=== PATIENT | female | born 2000 | race Caucasian/White ===

== ENCOUNTER 2021-01-20 17:20 | Emergency (ER) | payer OTHER ==
[2021-01-20 19:18] LABS: HEMOGLOBIN 11.9 gm/dl (12.3-15.3); RED BLOOD COUNT 4.4 M/UL (4.00-5.10); WHITE BLOOD COUNT 12.7 K/UL (4.5-11.0)
[2021-01-20 19:40] LABS: BUN/CREATININE RATIO 12 (0-10)
[2021-01-20] MEDS ORDERED: OMNICEF 300 MG300 MG PO (19:55)
== END 2021-01-20 20:01 | disposition home or self-care (01) ==
LOC: ER1 17:20
PROVIDERS: Student in an Organized Health Care Education/Training Program
DX: N39.0 Urinary tract infection, site not specified (principal); E03.9 Hypothyroidism, unspecified; Z79.899 Other long term (current) drug therapy
CPT/HCPCS: 80048; 81001; 84703; 85025; 99284